=== PATIENT | female | born 1960 | race African-American/Black ===

== ENCOUNTER 2018-07-03 00:02 | Inpatient (IN) | payer BC ==
[~2018-07-03] VITALS: Ht 177.8 cm; Wt 85.3 kg
[2018-07-03 00:11] VITALS: Ht 177.8 cm; Wt 85.3 kg
[2018-07-03 03:31] LABS: BASOPHIL % 0.5 % (0-2); PLATELET COUNT 283 x10^3mcL (130-400); RED CELL DISTRIBUTION WIDTH 13.9 % (11.5-14.5)
[2018-07-03 03:55] LABS: CALCIUM 8.9 mg/dL (8.5-10.1); CARBON DIOXIDE 28.3 mmol/L (21-32); CHLORIDE SERUM 102 mmol/L (98-107); GFR1 > 60 mL/min; GLUCOSE SERUM 110 mg/dL (74-106); POTASSIUM SERUM 3.2 mmol/L (3.5-5.1); SODIUM SERUM 138 mmol/L (136-145)
[2018-07-03 04:01] LABS: ALBUMIN 3.6 g/dL (3.4-5.0); ALKALINE PHOSPHATASE 79 U/L (46-116); ALT/SGPT 19 U/L (14-59); AST/SGOT 18 U/L (15-37); BILIRUBIN TOTAL 0.6 mg/dL (0.20-1.00); TOTAL PROTEIN, SERUM 7.4 g/dL (6.4-8.2)
[2018-07-03 04:05] LABS: microscopic required? NO
[2018-07-03 04:16] LABS: urine erythrocyte NEGATIVE (NEGATIVE)
[2018-07-03] MEDS ORDERED: HYZAAR1 TA2 (05:22)
[2018-07-03 05:45] LABS: MAGNESIUM 1.7 mg/dL (1.8-2.4); PHOSPHOROUS 3.5 mg/dL (2.5-4.9)
[2018-07-03 05:46] LABS: CHOLESTEROL/HDL RATIO 3.8
[2018-07-03 05:47] LABS: T3 TOTAL 1.26 ng/mL
[2018-07-03 05:56] VITALS: BP 116/78
[2018-07-03 06:07] LABS: FREE T4 0.92 ng/dL (0.76-1.46); FREE THYROXINE INDEX 2.8 ug/dL (1.4-4.5); T4(THYROXINE) 7.7 ug/dL (4.7-13.3)
[2018-07-03 07:06] VITALS: BP 115/75
[2018-07-03 15:36] VITALS: BP 115/75
[2018-07-03 15:50] VITALS: BP 134/87
== END 2018-07-03 16:44 | disposition left against medical advice (07) | DRG 313 ==
LOC: ED 00:02 → MU 04:56
PROVIDERS: Emergency Medicine; ADMIT Internal Medicine
DX: R07.89 Other chest pain (principal); D49.9 Neoplasm of unspecified behavior of unspecified site; I10 Essential (primary) hypertension; N28.89 Other specified disorders of kidney and ureter; Z53.21 Procedure and treatment not carried out due to patient leaving prior to being seen by health care provider; E87.6 Hypokalemia; E83.42 Hypomagnesemia; E78.5 Hyperlipidemia, unspecified; R73.03 Prediabetes; R56.9 Unspecified convulsions; Z88.8 Allergy status to other drugs, medicaments and biological substances; Z88.6 Allergy status to analgesic agent; Z91.041 Radiographic dye allergy status; V49.9XXA Car occupant (driver) (passenger) injured in unspecified traffic accident, initial encounter; Y93.89 Activity, other specified; Y92.89 Other specified places as the place of occurrence of the external cause; Y99.8 Other external cause status
CPT/HCPCS: 84439; J2270